=== PATIENT | male | born 2000 | race African-American/Black ===

== ENCOUNTER 2024-08-30 19:50 | Emergency (ER) | payer OTHER ==
[~2024-08-30] VITALS: Ht 170.2 cm; Wt 76.2 kg
[2024-08-30] MEDS: ASPIRIN 325 MG TAB PO ONE (20:26)
[2024-08-30] MEDS: SODIUM CHLORIDE 0.9% 1000ML 1,000 ML IV ONE (21:43)
[2024-08-30 22:19] VITALS: BP 157/96; PULSE 99; RESP 18; TEMP 98.3
[2024-08-30 22:23] VITALS: PULSE 99; RESP 18; TEMP 98.3; O2SAT 97
== END 2024-08-30 22:30 | disposition home or self-care (01) ==
LOC: FSED 20:02
DX: R00.0 Tachycardia, unspecified (principal); R07.89 Other chest pain; I10 Essential (primary) hypertension; E78.5 Hyperlipidemia, unspecified; R94.31 Abnormal electrocardiogram [ECG] [EKG]; F17.290 Nicotine dependence, other tobacco product, uncomplicated
CPT/HCPCS: 71046; 80053; 80076; 80307; 81003; 84484; 85025; 85379; 93005; 99284; J7030